=== PATIENT | male | born 1945 | race Caucasian/White ===

== ENCOUNTER → 2019-03-08 15:22 | Outpatient (CLI) | payer OTHER | END | disposition home or self-care (01) | LOC: D.LAB 15:22 | PROVIDERS: ATTEND Internal Medicine Hematology & Oncology | DX: I26.99 Other pulmonary embolism without acute cor pulmonale (principal); J84.10 Pulmonary fibrosis, unspecified; M31.6 Other giant cell arteritis; D68.59 Other primary thrombophilia ==

== ENCOUNTER → 2019-03-10 10:05 | Outpatient (CLI) | payer OTHER ==
[2019-03-08 16:33] LABS: BASOPHILS 0.1 % (0-2); EOSINOPHILS 0.4 % (0-7); IMMATURE GRANULOCYTES 2.4 % (0-5); LYMPHOCYTES 10.5 % (15-50); MCH 32.7 pg (26.0-34.0); MCHC 34.2 g/dL (31.0-37.0); MCV 95.5 fL (80.0-100.0); MONOCYTES 5.9 % (2-11); NEUTROPHILS 80.7 % (40-80); PLATELET COUNT 113 10x3/uL (130-400); RBC 3.98 10x6/uL (4.20-6.10); WBC 9.4 10x3/uL (4.8-10.8)
[2019-03-08 17:11] LABS: ANION GAP 12.1 mmol/L (8-16); BILIRUBIN - TOTAL 0.7 mg/dL (0.2-1.3); CALCIUM 8.1 mg/dL (8.5-10.1); CARBON DIOXIDE 26.4 mmol/L (21.0-32.0); CREATININE - SERUM 1.2 mg/dL (0.6-1.3); POTASSIUM - SERUM 4.5 mmol/L (3.5-5.1); PROTEIN - SERUM 5.7 g/dL (6.4-8.2)
[2019-03-09 12:09] LABS: ACLA - IGG AB <9 GPL U/mL (0-14); ACLA - IGM AB <9 MPL U/mL (0-12)
[2019-03-10 05:09] LABS: LUPUS - INTERPRETATION Comment: (()); LUPUS - THROMBIN TIME 18.8 sec (0.0-23.0); PTT-LA 26.7 sec (0.0-51.9)
[2019-03-10 11:10] LABS: PROTEIN S - FREE 138 % (57-157); PROTEIN S - FUNCTIONAL 86 % (63-140); PROTEIN S - TOTAL 84 % (60-150)
--- NOTE | 2019-03-11 14:45 | EC ---
PATIENT:TYESHA MENDOZA DATE OF SERVICE: 03/10/19 SEX: M MEDICAL RECORD: [id number] DATE OF : 43 LOCATION:[facility] AGE OF PATIENT: 73 ADMISSION DATE: 03/10/19 REFERRING PHYSICIAN: INTERPRETING PHYSICIAN: ADIS MARTINEZ MD ECHOCARDIOGRAM REPORT ECHO CHARGES 4 ECHO COMPLETE Date: 03/10/19 CLINICAL DIAGNOSIS: ANGINA/SOB/ABNORMAL EKG/ PULMONARY EMBOLI H/O CAD/HTN ECHOCARDIOGRAPHIC MEASUREMENTS (adult normal given) AC root (d.<3.7cm) 3.5 cm LV Septum d (<1.2 cm> 1.4 cm Valve Excursion 1.8 cm LV Septum (systole) 1.8 cm Left Atria (s.<4.0cm> 4.8 cm LVPW d(<1.2cm) 1.4 cm RV (d.<2.3cm) 2.0 cm LVPW (sytole) 1.6 cm LV diastole(<5.6CM) 3.5 cm MV E-F(>70mm/sec) cm LV systole 1.8 cm LVOT Diameter 2.0 cm MV exc.(>10mm) cm Est.ejection fraction (50-75%) % DOPPLER: LVIT cm/sec A 58.0 cm/sec E 48.0 cm/sec LA cm/sec RVSP mmHg LVOT 110 cm/sec AOP1/2T m/s Asc. Ao 118 cm/sec RVOT 69.0 cm/sec RA cm/sec PA 90.0 cm/sec AV Gradient Peak 5.6 mmHg AV Mean 3.3 mmHg AV Area 3.7 cm MV Gradient Peak 3.0 mmHg MV Mean 1.1 mmHg MV Area cm COMMENTS: OP - HC Paper Cup Machine Tender: Jennie BURROWS VALPARAISO Supervisor Grinding: 1 Dr. Martinez TAPE# PACS Pericardial Effusion N DATE OF SERVICE: 03/10/2019 PROCEDURE: Echocardiogram. FINDINGS: 1. Left ventricular chamber size is within normal limits. Left ventricular systolic function is normal at 55% to 60%. 2. Left atrium is enlarged at 4.8 cm. Right atrium and right ventricular chamber sizes are within normal limits. ECHOCARDIOGRAM REPORT [id number] TYESHA MENDOZA 3. Valvular structures have normal structure and motion. 4. Doppler interrogation reveals no significant valvular insufficiency or stenosis. 5. No evidence of pericardial effusion or left ventricular thrombus. TRANSINT:[id number] Voice Confirmation ID: [id number] DOCUMENT ID: [id number] ADIS MARTINEZ MD at 1445 CC: [id number] DICTATION DATE: 03/11/19 1111 LOBSTER CATCHER: 03/11/19 1259 DEP CLI 03/10/19 [place] [id number] [place] [id number]
[2019-03-11 20:06] LABS: FACTOR II DNA ANALYSIS Negative (())
[2019-03-12 22:06] LABS: PROTEIN C - ANTIGEN 161 % (60-150); PROTEIN C - FUNCTIONAL 185 % (73-180)
--- NOTE | 2019-03-22 09:52 | ST ---
PATIENT:TYESHA MENDOZA MEDICAL RECORD: [id number] SEX: M LOCATION:[facility] ORDER #: ADMISSION DATE: 03/10/19 AGE OF PATIENT: 73 REFERRING PHYSICIAN: INTERPRETING PHYSICIAN: ADIS CLARK MD DATE OF SERVICE: 03/10/2019 Nuclear Stress Test INDICATION: Angina, coronary artery disease, abnormal ECG, shortness of breath, and hypertension. He was exercised on standard Lexiscan protocol with 32 mCi of sestamibi injected at peak stress, 10 mCi used previously for rest images. FINDINGS: Gated SPECT reveals preserved ejection fraction at 70% with good wall motion and thickening and brightening throughout all segments. SPECT imaging Cardiolite was used as myocardial fusion agent. There is homogeneous uptake throughout all segments at rest and stress with no evidence of inducible ischemia or previous infarction. OVERALL IMPRESSION: 1. This is a normal nuclear stress test with no evidence of inducible ischemia or previous infarction. 2. Gated SPECT reveals a preserved ejection fraction at 70%. In this patient with ongoing symptomatology, the current scan does not suggest the presence of hemodynamically significant coronary artery disease. Evaluate noncardiac etiology of chest pain. TRANSINT:[id number] Voice Confirmation ID: [id number] DOCUMENT ID: [id number] ADIS CLARK MD at 0952 CC: VESNA CASEY MD [id number] DICTATION DATE: 03/11/19 1424 CREAM MAKER: 03/12/19 0259 DEP CLI 03/10/19 [place] [id number]
== END | disposition home or self-care (01) ==
LOC: D.HCCARDIO 10:05
PROVIDERS: ATTEND Internal Medicine Interventional Cardiology
DX: I25.110 Atherosclerotic heart disease of native coronary artery with unstable angina pectoris (principal); R06.02 Shortness of breath; I10 Essential (primary) hypertension; R94.01 Abnormal electroencephalogram [EEG]

== ENCOUNTER → 2019-03-17 09:52 | Outpatient (CLI) | payer OTHER ==
[2019-03-18 12:09] LABS: ANA REFLEX - DIRECT Negative (Negative)
== END | disposition home or self-care (01) ==
LOC: D.LAB 08:00 → D.ECHO 09:35 → D.LAB 09:52 → D.RT 10:30 → D.LAB 03-24 09:45 → D.ECHO 03-24 10:05 → D.RT 03-24 11:00
PROVIDERS: ATTEND Internal Medicine Pulmonary Disease
DX: R06.00 Dyspnea, unspecified (principal)

== ENCOUNTER → 2019-07-28 10:14 | Outpatient (CLI) | payer OTHER | END | disposition home or self-care (01) | LOC: D.RT 10:14 | PROVIDERS: ATTEND Internal Medicine Pulmonary Disease | DX: J84.10 Pulmonary fibrosis, unspecified (principal) ==

== ENCOUNTER → 2019-09-14 10:23 | Outpatient (CLI) | payer OTHER | END | disposition home or self-care (01) | LOC: D.RT 10:23 | PROVIDERS: ATTEND Internal Medicine Pulmonary Disease | DX: J84.10 Pulmonary fibrosis, unspecified (principal) ==